=== PATIENT | female | born 1965 | race Caucasian/White ===

== ENCOUNTER 2022-08-03 23:36 | Emergency (ER) | payer BC ==
[~2022-08-03] VITALS: Ht 165.1 cm; Wt 64.9 kg
--- NOTE | 2022-08-03 23:45 | NUR ---
Patient out of unit for ct scan via [place]
--- NOTE | 2022-08-03 23:46 | NUR ---
Patient taken to CT accompanied by Cassy AMBROSE
[2022-08-03 23:55] LABS: HEMATOCRIT 37.7 % (31.2-41.9); MEAN CORPUSCULAR VOLUME 91.2 fL (75.5-95.3); PLATELET COUNT (AUTO) 289 K/uL (179-408)
--- NOTE | 2022-08-03 23:57 | NUR ---
Patient is back from CT
--- NOTE | 2022-08-03 23:57 | NUR ---
Patient back from ct scan c/o nausea.
[2022-08-04 00:01] LABS: CREATININE 0.6 mg/dL (0.6-1.3); POTASSIUM 3.9 mmol/L (3.5-5.1)
--- NOTE | 2022-08-04 00:08 | NUR ---
Patient speaking with clear speech C/O intermitten EUBANKS since 07/26/2022. Patient states today at 1999 on 08/03/2022 her EUBANKS became severe, had mutiple episode of N/V, blurred vision and lost of balance.
[2022-08-04] MEDS ORDERED: KETOROLAC TROMETHAMINE 30 MG INJ ONE (00:13)
[2022-08-04] MEDS ORDERED: METOCLOPRAMIDE HCL 10 MG/2 ML VIAL ONE (00:14)
[2022-08-04] MEDS ORDERED: diphenhydrAMINE 50 MG/1 ML VIAL ONE (00:14)
[2022-08-04] MEDS ORDERED: IV NS 1000 ML 1,000 ML IV ONE (00:15)
[2022-08-04] MEDS ORDERED: METOCLOPRAMIDE HCL 10 MG/2 ML VIAL IV ONE (00:15)
[2022-08-04] MEDS ORDERED: diphenhydrAMINE 50 MG/1 ML VIAL IV ONE (00:15)
[2022-08-04] MEDS ORDERED: KETOROLAC TROMETHAMINE 30 MG INJ IVP ONE (00:15)
[2022-08-04] MEDS: MAGNESIUM SULFATE/D5W 100 ML IV SCH ×3 (00:51→01:29)
[2022-08-04] MEDS ORDERED: DIPH25CA83 PO (01:44)
[2022-08-04] MEDS ORDERED: NAPR-1164 PO (01:44)
[2022-08-04] MEDS ORDERED: METO-295 PO (01:44)
[2022-08-04 02:25] VITALS: BP 149/70
== END 2022-08-04 03:04 | disposition home or self-care (01) ==
LOC: ER 23:38
DX: G43.909 Migraine, unspecified, not intractable, without status migrainosus (principal); R94.31 Abnormal electrocardiogram [ECG] [EKG]; I45.10 Unspecified right bundle-branch block
CPT/HCPCS: 70450; 71045; 80048; 85025; 85730; 36415 ×2; 93005; 99285; 96365; 96375; 83735; J1200; J1885; J2765; J7040